=== PATIENT | male | born 1980 | race Caucasian/White ===

== ENCOUNTER 2025-03-28 10:59 | Emergency (ER) | payer MEDICAID, OTHER ==
[~2025-03-28] VITALS: Ht 172.7 cm; Wt 87.0 kg
--- NOTE | 2025-03-28 11:14 | ELECTROCARDIOGRAPH REPORT ---
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 Parish Huston Measurements Intervals [place] Rate: 87 P: 20 [place]: 168 QRS: 67 QRSD: 90 T: -58 QT: 360 QTc: 433 Interpretive Statements Sinus rhythm Nonspecific T abnormalities, lateral leads Electronically Signed On 03-30-2025 21:14:[address] Parish H[place]on Please click the below link to view image of tracing.
--- NOTE | 2025-03-28 11:36 | RADIOLOGY REPORT ---
CHEST RADIOGRAPH INDICATION: CP TECHNIQUE: Single frontal view of the chest was obtained COMPARISON: None FINDINGS: Lines and Tubes: None Lungs: No focal consolidation. Pleura: No effusion. No pneumothorax. Cardiomediastinal contours: Unremarkable Bones: No acute osseous abnormality. IMPRESSION: No acute cardiopulmonary disease.
[2025-03-28 11:37] LABS: MEAN PLATELET VOLUME 8.1 FL (7.4-10.4); RED CELL DISTRIBUTION WIDTH 13.1 % (11.5-14.5)
[2025-03-28 12:00] LABS: CREATININE 1.09 MG/DL (0.60-1.10); PRO BRAIN NATRIURETIC PEPTIDE 30 PG/ML (0-125); TOTAL CARBON DIOXIDE 28.4 MMOL/L (24-32); eCRCL 85 ML/MIN; eGFR 74 ML/MIN
[2025-03-28 12:51] VITALS: BP 118/86
--- NOTE | 2025-03-28 13:17 | Physician Documentation ---
History of Present Illness ~ Chief Complaint: Shortness of Breath Stated Complaint: RESP INFECTION Time Seen by MD: 12:54 OK to notify your PCP?: Yes Source: patient Mode of Arrival: POV Exam Limitations: no limitations HPI This is a 44-year-old male who comes in complaining of cough and congestion for the past three or four days. He says that has chest feels tight here with the occasional difficulty breathing. He denies fever though he has had subjective chills. He says he is coughing up yellowish-green sputum. He denies any significant past medical history Medication Reconciliation Allergies: Coded Allergies: Sulfa (Sulfonamide Antibiotics) (Verified Allergy, Unknown, 03/28/25) Physical Exam Vital Signs: Temperature: 98.4, Source: Temporal, Heart Rate: 89, Respiratory Rate: 16, BP: 118/86, Pulse Oximetry: 96, Weight: 87.000 Oxygen Flow Rate: 0 Pulse Oximetry Reflects: adequate oxygenation General Appearance: alert, WD/WN, no apparent distress Respiratory No accessory muscle use or retractions. There are wheezes in the bilateral mid lung christensen. No crackles or rales. Cardiovascular No rubs, gallops or murmurs. No peripheral edema, cyanosis or clubbing of the extremities Skin: normal color, warm/dry Progress Results/Orders Results/Orders Completed Orders - FERNANDA MONROE Ipratropium/Albuterol Nebule (Ipratrop/A (03/28/25 13:15) Dexamethasone Inj (Decadron 10mg/Ml Inj) (03/28/25 13:11) Medications Received in ER Medications (Trade) Dose Ordered Sig/Seb Route PRN Reason Start Time Stop Time Status Last Admin Dose Admin (ipratrop/ albuterol 0.5-3(2.5) MG/3ml nebule) 3 ml ONCE ONCE NEB 03/28/25 13:15 03/28/25 13:16 DC 03/28/25 13:29 3 ML (Decadron 10mg/ ml inj) 10 mg ONCE STAT IM 03/28/25 13:11 03/28/25 13:13 DC 03/28/25 13:24 10 MG Vital Signs 03/28/25 03/28/25 03/28/25 03/28/25 11:06 12:51 12:51 13:32 Temp 98.4 Pulse 100 89 109 Resp 18 16 20 B/P (MAP) 127/89 118/86 (97) Pulse Ox 20 96 100 O2 Delivery Room Air* O2 Flow Rate 0 0 0 FiO2 N/A 03/28/25 13:32 Pulse 111 Resp 20 Pulse Ox 99 O2 Delivery Room Air* O2 Flow Rate 0 FiO2 N/A Laboratory Tests Test 03/28/25 11:16 White Blood Count 12.1 H Red Blood Count 5.37 Hemoglobin 16.3 Hematocrit 47.9 Mean Corpuscular Volume 89.2 Mean Corpuscular Hemoglobin 30.4 Mean Corpuscular Hemoglobin Concent 34.1 Red Cell Distribution Width 13.1 Platelet Count 224 Mean Platelet Volume 8.1 Neutrophils (%) (Auto) 79.6 H Lymphocytes (%) (Auto) 13.0 L Monocytes (%) (Auto) 5.6 Eosinophils (%) (Auto) 1.6 Basophils (%) (Auto) 0.2 Neutrophils # (Auto) 9.6 H Lymphocytes # (Auto) 1.6 Monocytes # (Auto) 0.7 Eosinophils # (Auto) 0.2 Basophils # (Auto) 0.0 CBC Comment Sodium Level 138 Potassium Level 3.9 Chloride Level 103 Carbon Dioxide Level 28.4 Anion Gap 7 L Blood Urea Nitrogen 15 Creatinine 1.09 Estimated GFR/1.73 m2 74 BUN/Creatinine Ratio 13.8 Glucose Level 107 H Calcium Level 9.1 Troponin I High Sensitivity 6 Pro-B-Type Natriuretic Peptide 30 Albumin 3.6 Chemistry Comments EKG/XRAY/CT/US/VASC/MRI EKG : Intepreting Monitor?: No Chest X-Ray : Interpreted By: self Additional Comments This x-ray one view interpreted by me: No acute disease process. Cardiac silhouette and lung christensen are appropriate. Soft tissues unremarkable. No bony abnormalities Medical Decision Making Additional information obtaine: N/A Findings The patient has had cough and cold symptoms for the past few days. A cardiac wo rkup was initiated through triage however this is on appear to be cardiac appears to be a respiratory infection. I gave the patient a DuoNeb breathing treatment and Decadron 10 mg IM I am going to continue with the prednisone 60 mg once a day for the next four days and an albuterol inhaler. The patient can use [id number] cough cold medications for symptomatic relief. Follow up with the primary care physician for recheck in the next one or two days and return to the ER for any worsening or concerning symptoms Heart Score: 1 Differential Dx:Considerations: Include: anxiety, asthma, bronchitis, cardiogenic shock, CHF, COPD, dysrhythmia, hypertension, accelerated, hypertension, essential, hypertension, malignant, hyperventilation, hyponatremia, myocardial infarction, panic attack, pneumonia, pneumonitis, pneumothorax, PSVT, pulmonary embolism, respiratory distress, respiratory failure, sinusitis, upper resp. infection, other Additional Infomation Upper respiratory tract infection. Pneumonia. Viral syndrome. Influenza Departure Disposition: HOME / SELF CARE / HOMELESS Impression: Primary Impression: Upper respiratory infection Condition: Stable Discharge Instructions: Upper Respiratory Infection, Adult Additional Instructions: Take the medications as prescribed. Drink lots of water and get plenty of rest. It is take ibuprofen or Tylenol for any body aches or fever. Follow up with the primary care physician for recheck in the next one or two days and return to the ER for any worsening or concerning symptoms Referrals: NO PRIMARY CARE PROVIDER (PCP) Prescriptions albuterol inhaler (Pro-Air Inhaler) 8.5 Gm Inhaler 2 PUFFS INH Q4HPRN PRN for wheezing for 30 Days, #18 GM Prov: FERNANDA MONROE 03/28/25 Prednisone* (Prednisone*) 20 Mg Tablet 3 TAB PO DAILY for 4 Days, #12 TAB Prov: FERNANDA MONROE 03/28/25 Signature Scribe Signature: No scribe Attestation: The note accurately reflects work and decisions made by me.Fernanda PRAKASH 03/28/25 14:12 FERNANDA MONROE Mar 28, 2025 13:17
[2025-03-28] MEDS: dexamethasone sod phosphate 10mg/ml inj IM STA (13:24)
[2025-03-28] MEDS: ipratropium/albuterol 3ml nebule NEB ONE (13:29)
[2025-03-28 13:32] VITALS: PULSE 109; PULSE 111; RESP 20; O2SAT 100; O2SAT 99
[2025-03-28] MEDS ORDERED: PRED20TA PO (14:12)
[2025-03-28] MEDS ORDERED: ALBU8HFA INH (14:12)
[2025-03-28 14:20] VITALS: TEMP 98.4
== END 2025-03-28 14:21 | disposition home or self-care (01) ==
LOC: ER 10:59
DX: J06.9 Acute upper respiratory infection, unspecified (principal); R06.2 Wheezing; I49.9 Cardiac arrhythmia, unspecified; Z88.2 Allergy status to sulfonamides
CPT/HCPCS: 36415; 71045; 80048; 83880; 84484; 85025; 93005; 94640; 94760; 96372; 99285; J1100